=== PATIENT | male | born 1995 | race Caucasian/White ===

== ENCOUNTER 2019-08-23 10:40 | Emergency (ER) | payer BC, OTHER ==
[~2019-08-23 10:40] MED LIST: Iopamidol 370 76% 100 ML VIAL ONE
[2019-08-23 11:07] LABS: #Basophils 0.1 thou/uL (0.0-0.2); #Eosinphils 0.1 thou/uL (0.0-0.7); #Lymphocytes 2.1 thou/uL (1.20-3.40); #Monocytes 0.5 thou/uL (0.11-0.59); #Neutrophils 6.6 thou/uL (1.40-6.50); %Basophils 0.6 % (0.0-1.0); %Monocytes 5.4 % (0.0-10.0); %Neutrophils 70.1 % (42.0-75.0); Hemoglobin 15.5 g/dL (14.0-18.0); Mean Corpuscular HGB CONC 32.9 g/dL (32.0-36.0); Mean Corpuscular Hemoglobin 31.3 pg (27.0-31.0); Mean Corpuscular Volume 95.2 fL (78.0-98.0); Mean Platelet Volume 7.7 fL (7.4-10.4); Platelet Count 268 thou/uL (130-400); RBC Distribution Width 11.7 % (11.5-14.5); Red Blood Cell (RBC) Count 4.95 mill/uL (4.70-6.10); White Blood Cell (WBC) Count 9.3 thou/uL (4.8-10.8)
[2019-08-23 11:36] LABS: ALT (SGPT) 31 U/L (8-55); AST (SGOT) 22 U/L (5-34); Albumin 4.5 g/dL (3.5-5.0); Alkaline Phosphatase 66 U/L (40-110); Anion Gap 16 mmol/L (10-20); BUN (Urea Nitrogen) 14 mg/dL (8.9-20.6); Bilirubin, Total 0.4 mg/dL (0.2-1.2); Calc. Creatinine Clearance 0 mL/min (70-130); Calcium 9.3 mg/dL (7.8-10.44); Carbon Dioxide 21 mmol/L (22-29); Chloride 105 mmol/L (98-107); Estimated GFR-MDRD Greater than 90; Globulin 3.3 g/dL (2.4-3.5); Glucose 141 mg/dL (70-105); Potassium 4.1 mmol/L (3.5-5.1); Protein, Total 7.8 g/dL (6.0-8.3); Sodium 138 mmol/L (136-145)
[2019-08-23] MEDS ORDERED: Ketorolac Tromethamine 30 MG/ML VIAL ONE (11:39)
[2019-08-23] MEDS ORDERED: Adacel (T-DAP) 0.5 ML SYRINGE ONE (11:42)
[2019-08-23] MEDS ORDERED: Bacitracin 1 PK ONE (12:00)
--- NOTE | 2019-08-23 16:19 | CT ---
CT CHEST, ABDOMEN AND PELVIS WITH CONTRAST: 08/23/[address] of the chest, abdomen and pelvis was done following trauma. IV contrast was employed. CT of the thorax shows the lungs to be clear with no infiltrate, effusion, or pneumothorax. There is no sign of contusion. The mediastinum shows no hematoma. The aorta is normal in caliber and appearanc e. There is no pericardial effusion. The bony thorax showed no acute findings. The vertebral bodies a ll appeared intact, as did the ribs. There may have been old trauma to the spinous process of T2. CT of the abdomen showed a normal appearing liver, spleen, pancreas, adrenal glands, kidneys, gallbla dder and aorta. There is no sign of laceration or hematoma in any organ. The bowel was normal in appe arance. There was no free air or free fluid seen. CT of the pelvis showed no signs of pelvic hematoma, mass, or free fluid. The bony pelvis and lumbar spine all appeared intact. IMPRESSION: No acute traumatic changes. POS: HOME
== END 2019-08-23 12:11 | disposition home or self-care (01) ==
LOC: BURERS 10:40
DX: S40.022A Contusion of left upper arm, initial encounter (principal); S30.1XXA Contusion of abdominal wall, initial encounter; F17.220 Nicotine dependence, chewing tobacco, uncomplicated; V86.59XA Driver of other special all-terrain or other off-road motor vehicle injured in nontraffic accident, initial encounter
CPT/HCPCS: 71260; 74177; 80053; 85025; 90471; 90715; 96374; J1885; Q9967